=== PATIENT | female | born 1980 | race Caucasian/White ===

== ENCOUNTER → 2017-03-10 | Day surgery (SDC) | payer BC, OTHER ==
--- NOTE | 2017-03-08 14:42 | PAT Medication Instructions ---
Service Date Mar 08, 2017. Current Home Medication List Ascorbic Acid (Vitamin C), 1 TAB PO QAM Aspirin (Aspirin Ec), 81 MG PO QPM Atorvastatin (Lipitor), 40 MG PO QPM Citalopram Hydrobromide (Celexa), 20 MG PO QPM Insulin Aspart (novoLOG INSULIN PUMP ), 1 EA N/A UD Lamotrigine (Lamictal), 200 MG PO BID Levothyroxine Sodium (Levothyroxine Sodium), 1 TAB PO QAM Ondansetron Hcl (Zofran), 4 MG PO PRN Medication Instructions For Your Scheduled Surgery - Hold the following medications the morning of surgery: Ascorbic Acid (Vitamin C), 1 TAB PO QAM - Take the following medications the morning of surgery with a sip of water: Ondansetron Hcl (Zofran), 4 MG PO PRN (if needed) Levothyroxine Sodium (Levothyroxine Sodium), 1 TAB PO QAM Lamotrigine (Lamictal), 200 MG PO BID - Take the following medications as scheduled the night before surgery: Ondansetron Hcl (Zofran), 4 MG PO PRN (if needed) Lamotrigine (Lamictal), 200 MG PO BID Citalopram Hydrobromide (Celexa), 20 MG PO QPM Atorvastatin (Lipitor), 40 MG PO QPM Aspirin (Aspirin Ec), 81 MG PO QPM (okay to continue per surgeon) - For Insulin Dependent Diabetic patients: Test blood sugar A.M. of surgery. - Insulin Aspart (novoLOG INSULIN PUMP ), 1 EA N/A UD (keep at basal rate setting) If you have any questions please call us at [phone] or [phone] or [phone]
[2017-03-08 15:39] LABS: BASO % 0.2 %; BASO ABS # 0.01 K/uL (0-0.2); COMPLETE YES; EOS % 4.7 %; HEMATOCRIT 39.6 % (37-47); IG% 0.2 %; LYMPH % 22.8 %; LYMPH ABS # 1.27 K/uL (1.2-3.4); MEAN CELL VOLUME 89.4 fL (80-100); MEAN CORPUSCULAR HEMOGLOBIN 30.7 pg (25-34); MEAN CORPUSCULAR HGB CONC 34.3 g/dl (32-36); MEAN PLATELET VOLUME 12.4 fL (7.4-10.4); MONO % 8.6 %; NEUT % 63.5 %; PLATELET COUNT 214 K/uL (130-400); RED BLOOD COUNT 4.43 M/uL (4.2-5.4); WHITE BLOOD COUNT 5.57 K/uL (4.8-10.8)
[2017-03-08 16:47] LABS: BUN/CREATININE RATIO 15.8 (10-20); CALCIUM 8.8 mg/dl (8.5-10.1); CREATININE 0.98 mg/dl (0.60-1.20); POTASSIUM 3.7 mmol/L (3.5-5.1)
[2017-03-08 16:58] LABS: BETA-HYDROXYBUTYRATE 1.01 mg/dL (0.2-2.81)
[2017-03-09 07:07] LABS: ESTIMATED AVERAGE GLUCOSE 183 mg/dl; HA1C FLAG Normal (Normal)
[~2017-03-10] VITALS: Ht 175.3 cm; Wt 93.4 kg
[~2017-03-10] MED LIST: ASCA500 PO; ASPI81TA28 PO; ATOR-24 PO; ATROPINE SULFATE 0.1 MG/ML 5ML SYR IV PRN; CITA20TA9 PO; EpHEDrine SULFATE INJ 50 MG/ML AMP IV PRN; FENTANYL CITRATE INJ 50 MCG/1 ML 2 ML VIAL IV PRN; FENTANYL CITRATE INJ 50 MCG/1 ML 2 ML VIAL ONE; HYDROCODONE/ACETAMOPHEN 5/325MG TAB PO PRN; HYDROmorphone INJ 1 MG/ML SYR IV PRN; IBUPROFEN 600 MG TAB PO PRN; INSPMPNVLG; KETOROLAC TROMETHAMINE 30 MG/ML VIAL IV. PRN; KETOROLAC TROMETHAMINE 30 MG/ML VIAL ONE; LACTATED RINGER'S 1000ML 1,000 ML IV SCH; LAMO200T35 PO; LEVO125T5 PO; LIDOCAINE HCL 2% 2 ML VIAL (20MG/ML) ONE; METOCLOPRAMIDE HCL INJ 5 MG/ML 2 ML VIAL IV PRN; MIDAZOLAM HCL 1 MG/ML 2ML VIAL ONE; MTR600X PO; ONDA4TAB65 PO; ONDANSETRON INJ 2 MG/ML 2 ML VIAL IV PRN; ONDANSETRON INJ 2 MG/ML 2 ML VIAL ONE; OXYCODONE/ACETAMINOPHEN 5-325 TAB PO PRN; PROMETHAZINE HCL INJ 12.5 MG in SODIUM CHLORIDE 0.9% 50ML 50 ML IV PRN; PROPOFOL IV EMULSION 10 MG/ML 20 ML VIAL IV ONE; SODIUM CHLORIDE 0.9% 1000ML 1,000 ML IV SCH
[2017-03-10 11:07] VITALS: BP 138/77; PULSE 81; TEMP 37; O2SAT 99; Ht 175.3 cm; Wt 93.4 kg
--- NOTE | 2017-03-10 12:50 | History & Physical Bridge Note ---
H&P Re-Evaluation Bridge Note: I have examined the patient, reviewed the History & Physical and in the interval since the performance of the History & Physical I have noted the following changes of clinical significance: No changes noted
--- NOTE | 2017-03-10 14:08 | [facility] Post Operative Brief Note ---
Immediate Operative Summary Operative Date Mar 10, 2017. Pre-Operative Diagnosis Menorrhagia Post-Operative Diagnosis Menorrhagia Procedure(s) Performed examination under anesthesia, hysteroscopy, endometrial resection with myosure, dilation and curettage, endometrial novasure ablation Surgeon Dr. Micheline Medel [employer] Machine Operator Surgeon(s) none Estimated Blood Loss 20ml Findings dictated Fluids (cc crystalloids) 500 Specimens A. enodmetrial curettings (permanent) B. endometrial resection (permanent) Drains none Anesthesia general Complication(s) None Disposition Recovery Room / PACU
--- NOTE | 2017-03-10 14:12 | Discharge Instructions ---
Discharge Instructions Date of Service Mar 10, 2017. Admission Reason for Admission: Menorrhagia, Endometrial Polyp On Sonogram Discharge Discharge Diagnosis / Problem: postop Discharge Goals Goal(s): Routine recovery after surgery Activity Recommendations Activity Limitations: as noted below ACTIVITY RECOMMENDATIONS: * Avoid tampons, douching, hot tubs, pools, and intercourse until bleeding has stopped. * May shower as usual. * No strenuous activity for 24-48 hours. After 24-48 hours, you can do anything you feel like doing (driving and sports are okay). RETURN TO SCHOOL/WORK: * You may return to school or work after 24 hours unless specified by your physician. DIET: * Resume previous diet. MEDICATIONS: Resume previous medications unless instructed otherwise by your surgeon. Ibuprofen 200mg 2-3 tablets every 4-6 hours as needed --OR-- Aleve 2 tablets every 8-12 hours as needed for post-operative discomfort Medications are over the counter. Tylenol may be used if above medications are contraindicated or not preferred. Medication should be taken with food or milk. do not take on an empty stomach. SPECIAL CARE INSTRUCTIONS: * Check temperature twice daily for one week. Report any elevation over 101 degrees. * Call office if you experience increased pelvic pain or discomfort not relieved by pain medicine, if you have foul smelling vaginal discharge, if you have bleeding that is heavier than a normal menstrual flow. If you are changing a maxi pad every 1- 2 hours, this is too heavy. vaginal spotting is normal for 1-2 weeks. FOLLOW UP VISIT: Call your doctor's office for a post-operative visit. . Current Hospital Diet Patient's current hospital diet: Discharge Diet Recommended Diet: Regular Diet Procedures Procedures Performed: examination under anesthesia, hysteroscopy, endometrial resection with myosure, dilation and curettage, endometrial novasure ablation Pending Studies Studies pending at discharge: no Laboratory Results Hemoglobin A1c Test 03/08/17 14:50 Range/Units Estimated Average Glucose 183 mg/dl Hemoglobin A1c 8.0 H 4.5-5.6 % Medical Emergencies . Who to Call and When: Medical Emergencies: If at any time you feel your situation is an emergency, please call 911 immediately. . Non-Emergent Contact Non-Emergency issues call your: Specialist . . "Provider Documentation" section prepared by Karl Medel. . VTE Core Measure Inpt VTE Proph given/why not?: Treatment not indicated
--- NOTE | 2017-03-10 14:42 | Anesthesiology Progress Note ---
Anesthesia Post Op Note Date & Time Mar 10, 2017 at 14:42 Vital Signs Pain Intensity: 4 Vital Signs Past 12 Hours Date Time Temp Pulse Resp B/P (MAP) Pulse Ox O2 Delivery O2 Flow Rate FiO2 03/10/17 14:35 69 15 120/80 96 Room Air 03/10/17 14:25 66 14 125/90 100 Oxymask 10 03/10/17 14:15 66 12 139/94 100 Oxymask 10 03/10/17 14:05 36.3 75 20 141/94 100 Oxymask 10 03/10/17 11:07 37 81 20 138/77 (97) 99 Room Air Notes Mental Status: alert / awake / arousable, participated in evaluation Pt Amnestic to Procedure: Yes Nausea / Vomiting: adequately controlled Pain: adequately controlled Airway Patency, RR, SpO2: stable & adequate BP & HR: stable & adequate Hydration State: stable & adequate Anesthetic Complications: no major complications apparent Doing well, no complaints. VSS. Ready for d/c from PACU phase 1
[2017-03-10 14:50] VITALS: BP 119/70; PULSE 79; TEMP 36.6; O2SAT 99
[2017-03-10 15:20] VITALS: BP 118/68; PULSE 85; O2SAT 98
--- NOTE | 2017-03-10 15:52 | OPERATIVE REPORT ---
DATE OF OPERATION: 03/10/2017 INDICATION FOR PROCEDURE: This is a 36-year-old with menorrhagia. The patient also has a history of diabetes mellitus. The patient had a pelvic ultrasound was suspicious for possible endometrial polyp. The patient had declined other medical therapy including IUDs. The patient wanted to undergo endometrial ablation. POSTOPERATIVE DIAGNOSES: 1. Menorrhagia. 2. Abnormal ultrasound finding. POSTOPERATIVE DIAGNOSES: Same. PROCEDURES: 1. Examination under anesthesia. 2. Hysteroscopy. 3. Endometrial resection with MyoSure. 4. Dilation and curettage. 5. Endometrial NovaSure ablation. SURGEON: Dr. Medel. MANAGER CORE: None. ESTIMATED BLOOD LOSS: 20 mL. IV FLUIDS: 500 mL. NET HYSTEROSCOPY LOSS: 110 mL. FINDINGS: Normal female escutcheon. No lesions on the vulva, vagina or cervix. Uterus is about 10 weeks' size. The uterine cavity showed a thickened endometrium. There was a uterine polyp on the anterior portion of the uterus. Both ostia were identified. SPECIMENS: 1. Endometrial tissue ____ resection by MyoSure. 2. Endometrial curettings from D&C. DRAINS: None. ANESTHESIA: General. COMPLICATIONS: None. DISPOSITION: Stable to recovery room. PROCEDURE: The patient was taken to the operating room where she was prepped and draped in normal sterile fashion after time out was called. A weighted speculum was placed in the vagina. Porter retractor used to retract the anterior part of the vagina. Single tooth tenaculum was used to grab the cervix. Uterus was sounded and sounded to 9 cm. The cervix was dilated to a size 24. A hysteroscope was placed into the uterus and findings are dictated as above. The outflow tract of the hysteroscope was removed and a MyoSure device passed through the outflow tract. Resection of the endometrium was performed using the MyoSure. Specimens from MyoSure was suctioned and sent to pathology for pathologic analysis. The entire hysteroscope was removed and Telfa was placed into the vagina. A size 2 sharp curette was introduced in the uterine cavity and curettage performed in all 4 quadrants until the gritty discharge obtained. The specimen is also sent to pathology for pathologic analysis. The MyoSure placed in the uterine cavity. This was done after the measurements of the uterine cavity and uterus, cervix was calculated. The uterine cavity length was 5.5. Cavity width was 4.5. The MyoSure integrity was confirmed using the device. Ablation was performed. Time for ablation is 48 seconds, power for ablation was 133 wood. Deficit after hysteroscopy was 105 mL. The MyoSure device was removed and the hysteroscope placed back into the uterine cavity showed the MyoSure was successful. All instruments were removed from the uterus and the vagina and accounted for x2 including sponges and needles as well as retractors. The patient is doing well and stable in recovery. I attest to the content of the Intraoperative Record and any orders documented therein. Any exception s are noted below.
[2017-03-10 15:55] VITALS: BP 103/64; PULSE 83; TEMP 37.2; O2SAT 95
[2017-03-10 16:20] VITALS: BP 121/76; PULSE 81; O2SAT 96
== END | disposition home or self-care (01) ==
LOC: C.ACU 10:43
PROVIDERS: ATTEND Obstetrics & Gynecology
DX: N84.0 Polyp of corpus uteri (principal); E10.9 Type 1 diabetes mellitus without complications; Z79.4 Long term (current) use of insulin; Z79.82 Long term (current) use of aspirin; Z79.899 Other long term (current) drug therapy; E78.5 Hyperlipidemia, unspecified; E03.9 Hypothyroidism, unspecified; G40.909 Epilepsy, unspecified, not intractable, without status epilepticus; F32.9 Major depressive disorder, single episode, unspecified; F41.9 Anxiety disorder, unspecified; E66.9 Obesity, unspecified; Z68.30 Body mass index [BMI] 30.0-30.9, adult